=== PATIENT | female | born 1995 | race Two or more races ===

== ENCOUNTER 2016-12-02 05:29 | Emergency (ER) | payer MEDICAID ==
[~2016-12-02] VITALS: Ht 157.5 cm; Wt 68.0 kg
[2016-12-02 05:35] VITALS: BP 114/43
--- NOTE | 2016-12-02 06:17 | Emergency Room Report ---
History of Present Illness General Chief Complaint: Overdose Source: Patient Present Illness HPI This is a 21-year-old female with no significant past medical history. She presents with chief complaint of possible seizure. She said she had some marijuana last night. Her mom is out of bed unresponsive was shaking of both hands. She claimed this lasted for 10 minutes. Patient does not remember what happened. She has no incontinence of bowel or urine. She has no tongue trauma. She has no other complaint. Denies any drugs or alcohol use. She does not drive. Allergies: Coded Allergies: No Known Allergies (Unverified , 12/02/16) Patient History Past Medical History: see triage record, old chart reviewed Past Surgical History: none Pertinent Family History: none Social History: Denies: smoking Last Menstrual Period: 2 weeks Now: No Immunizations: other Reviewed Nursing Documentation: PMH: Agreed, PSxH: Agreed Nursing Documentation-PMH Past Medical History: No Stated History Review of Systems Eye: Denies: blurred vision, eye pain ENT: Denies: ear pain, nose congestion, throat swelling Respiratory: Denies: cough, shortness of breath Cardiovascular: Denies: chest pain, palpitations Gastrointestinal: Denies: abdominal pain, diarrhea, nausea, vomiting Musculoskeletal: Denies: back pain, joint pain Skin: Denies: rash Neurological: Denies: headache, numbness Endocrine: Denies: increased thirst, increased urine Hematologic/Lymphatic: Denies: easy bruising All Other Systems: negative except mentioned in HPI Physical Exam Vital Signs Date Time Temp Pulse Resp B/P Pulse Ox O2 Delivery O2 Flow Rate FiO2 12/02/16 05:21 98.1 139 16 139/76 98 Room Air vitals showed tachycardia Sp02 EP Interpretation: reviewed, normal General Appearance: well appearing, no apparent distress, alert Head: normocephalic, atraumatic Eyes: bilateral eye EOMI, bilateral eye PERRL ENT: hearing grossly normal, normal pharynx Neck: full range of motion, supple, no meningismus Respiratory: chest non-tender, lungs clear, normal breath sounds Cardiovascular #1: regular rate, rhythm, no murmur Gastrointestinal: normal bowel sounds, non tender, no mass, no organomegaly, no bruit, non-distended Musculoskeletal: back normal, gait/station normal, normal range of motion Psychiatric: mood/affect normal Skin: warm/dry Medical Decision Making Diagnostic Impression: Primary Impression: Altered mental status, unspecified Additional Impression: Marijuana abuse ER Course Patient presents with shakiness after using marijuana. Questionable seizure. Supposedly she was in this condition for 10-15 minutes but labs are normal. There is no trauma or incontinence of urine. She does not drive. We'll discharge home with reassurance. Told patient and mom that this may be other drugs that are not on our screen. Last Vital Signs Date Time Temp Pulse Resp B/P Pulse Ox O2 Delivery O2 Flow Rate FiO2 12/02/16 05:35 106 19 Room Air 12/02/16 05:35 97.9 114/43 100 Status: improved Disposition: HOME, SELF-CARE Condition: Stable Referrals: NOT CHOSEN IPA/MD,REFERRING (PCP) Patient Instructions: OVERDOSE, Accidental (Adult) Additional Instructions: Abstain from drugs and alcohol. Followup with your Dr. in 7 days. Return if worse. MARK DELANEY M.D. Dec 02, 2016 06:16
[2016-12-02 06:37] LABS: MEAN CORPUSCULAR HEMOGLOBIN 31.1 PG (27.0-31.0); MEAN CORPUSCULAR HGB CONC 32.6 G/DL (32.0-36.0); MEAN CORPUSCULAR VOLUME 95 FL (80-99); MEAN PLATELET VOLUME 7.4 FL (6.5-10.1); PLATELET COUNT 207 K/UL (150-450); RED BLOOD COUNT 4.23 M/UL (4.20-5.40); RED CELL DISTRIBUTION WIDTH 11.6 % (11.6-14.8); WHITE BLOOD COUNT 13.5 K/UL (4.8-10.8)
[2016-12-02 06:39] LABS: ALCOHOL < 10 mg/dL; ANION GAP 20 (5-15); CALCIUM 9.5 mg/dL (8.6-10.2); CARBON DIOXIDE 21 mEQ/L (20-30); CHLORIDE 97 mEQ/L (98-107); CREATININE 0.6 mg/dL (0.5-0.9); GLOMERULAR FILTRATION RATE > 60 mL/min (>60); HEMOLYSIS 106; SODIUM 138 mEQ/L (135-145)
[2016-12-02 06:47] LABS: APPEARANCE,URINE CLEAR; KETONES,URINE 1+ (NEGATIVE); LEUKOCYTE ESTERASE ,URINE 1+ (NEGATIVE); NITRITE,URINE NEGATIVE (NEGATIVE); PH,URINE 6 (4.5-8.0); PROTEIN,URINE 1+ (NEGATIVE); UROBILINOGEN,URINE NORMAL MG/DL (0.0-1.0)
[2016-12-02 07:06] LABS: AMORPHOUS SEDIMENT,UR FEW /LPF; BACTERIA,URINE FEW /HPF; SQUAMOUS EPITHELIAL CELL,UR FEW /LPF (NONE/OCC); WBC,URINE 0-2 /HPF (0 - 2)
[2016-12-02 07:30] VITALS: BP 110/48
[2016-12-02 07:34] VITALS: BP 110/48
[2016-12-02 09:12] LABS: LYMPHOCYTES % (MANUAL) 8 % (20-45); NEUTROPHILS % (MANUAL) 90 % (45-75)
[2016-12-02 09:13] LABS: BAND NEUTROPHILS % (MANUAL) 0 % (0-8); BASOPHILS % (MANUAL) 0 % (0-2); EOSINOPHILS % (MANUAL) 0 % (0-3); PLATELET ESTIMATE ADEQUATE; PLATELET MORPHOLOGY NORMAL
== END 2016-12-02 07:34 | disposition home or self-care (01) ==
LOC: EDBD 05:29 → EMR 05:45
DX: R41.82 Altered mental status, unspecified (principal); F12.10 Cannabis abuse, uncomplicated
CPT/HCPCS: 36415; 80048; 80300; 80329; 81003; 81025; 85007; 85025; 96374